=== PATIENT | male | born 1970 | race Caucasian/White ===

== ENCOUNTER 2022-02-24 00:03 | Day surgery (SDC) | payer OTHER, SELFPAY ==
[2022-02-02 13:50] VITALS: BMI 29.8
[2022-02-24 08:22] VITALS: BP 123/85; PULSE 93; RESP 18; TEMP 36.3; O2SAT 99
[2022-02-24] MEDS: LACTATED RINGERS 1,000 ML 150 ML IV CONT (08:35)
--- NOTE | 2022-02-24 08:54 | P.PNAN_ITS ---
Anes - Initial Pre Proc Eval Procedure: Operation Date: 02/24/22 09:15 Proposed Procedures p Screening Colonoscopy - Leonardo Moura MD Date/Time: 02/24/22 08:54 Surgeon: Leonardo Moura MD Pre Op Diagnosis: neoplasm screening, hx of colon polyps Patient Data Age: 51 Gender: M Height: 1.73 m Weight: 89.2 kg Last Vital Signs Temp 97.4 F L 02/24/22 08:22 Pulse 93 02/24/22 08:22 Resp 18 02/24/22 08:22 BP 123/85 02/24/22 08:22 Pulse Ox 99 02/24/22 08:22 O2 Del Method Room Air 02/24/22 08:22 Allergies Allergy/AdvReac Type Severity Reaction Status Date / Time No Known Allergies Allergy Unknown Verified 02/24/22 08:21 Home Medications Medication Instructions Recorded Confirmed Type Adult One Daily Multivitamin 1 tab-cap PO DAILY 02/02/22 02/02/22 History Candido-Iron 325 mg PO DAILY 02/02/22 02/02/22 History Vitamin D3 1,000 units PO DAILY 02/02/22 02/02/22 History ascorbate calcium (vitamin C) 500 mg PO DAILY 02/02/22 02/02/22 History Patient hx anesthesia problems: none Family hx anesthesia problems: none Results Review: All pre-operative results and documents have been reviewed as part of the pre- operative evaluation. [facility] Social History Social History Smoking status: Never smoker Alcohol intake: current Alcohol use details: once a week Substance use: never Substance use type: does not use Living arrangements: alone Spiritual care concerns: No Anes - Eval Final PreProcedure Day of Procedure 02/24/22 08:54 Patient weight: overweight Heart: regular rate and rhythm Lungs: clear to auscultation Airway: Mallampati scale class II Neurological: alert and oriented Last oral intake: >/= 8 hours ASA classification: II Emergent: no Anesthetic plan: proceed Results Review: All pre-operative results and documents have been reviewed as part of the pre- operative evaluation. Informed Consent: The patient's anesthetic plan and its attendant risks and benefits were discussed with the patient/family/POA. Questions were solicited and answers provided to the satisfaction of the patient/family/POA.
--- NOTE | 2022-02-24 09:15 | WPDGICN ---
Assessment and Plan Assessment and plan (1) Encounter for screening colonoscopy: Code(s): Z12.11 - Encounter for screening for malignant neoplasm of colon Status: Acute Assessment and Plan: Patient presents for screening colonoscopy. patient also notices some occasional rectal bleeding that will be assessed at time of endoscopy. High-fiber diet is advised. Further recommendations may be given after endoscopy. GI Consult Note Consult date/time: 02/24/22 09:15 Reason for consult: Screening colonoscopy HPI: Saran Boo is a 51 year old male presents for screening colonoscopy. Patient's current weight appetite and bowel movements are normal. Patient denies abdominal pain. Blah habits are normal. patient has a history of a benign hyperplastic polyp removed from the colon 2014. Patient has noticed intermittent bright red blood per rectum this sometimes will last for a week at a time. He denies any associated pain. He reports that his brother was diagnosed with inflammatory bowel disease and colitis . Patient presents today for screening exam. Review of Systems Review of Systems: Review of systems is noncontributory. [facility] Social History Social History Smoking status: Never smoker Alcohol intake: current Alcohol use details: once a week Substance use: never Substance use type: does not use Living arrangements: alone Spiritual care concerns: No Meds Home Medications and Allergies Home Medications Medication Instructions Recorded Confirmed Type Adult One Daily Multivitamin 1 tab-cap PO DAILY 02/02/22 02/02/22 History Candido-Iron 325 mg PO DAILY 02/02/22 02/02/22 History Vitamin D3 1,000 units PO DAILY 02/02/22 02/02/22 History ascorbate calcium (vitamin C) 500 mg PO DAILY 02/02/22 02/02/22 History Allergies Allergy/AdvReac Type Severity Reaction Status Date / Time No Known Allergies Allergy Unknown Verified 02/24/22 08:21 Vital Signs Vital Signs - 24 hr 02/24/22 08:22 Temperature 97.4 F L Pulse Rate 93 Respiratory Rate 18 Blood Pressure 123/85 Pulse Oximetry 99 Oxygen Delivery Room Air Exam Narrative: Physical exam reveals patient to be alert. Vital signs stable. HEENT exam is unremarkable. Patient is anicteric. Lungs are clear to auscultation and percussion. Heart is without murmur or extra sounds. Abdominal exam bowel sounds are present soft nontender with no hepatosplenomegaly. Digital external rectal exam is normal.
[2022-02-24 09:46] VITALS: BP 109/76; PULSE 96; RESP 19; O2SAT 100
[2022-02-24 09:56] VITALS: BP 115/81; PULSE 91; RESP 19; O2SAT 100
[2022-02-24 10:06] VITALS: BP 113/83; PULSE 82; RESP 19; O2SAT 100
== END 2022-02-24 10:24 | disposition home or self-care (01) ==
PROVIDERS: PCP Family Medicine; Visit Provider Internal Medicine Gastroenterology
PROC: 0DJD8ZZ Inspection of Lower Intestinal Tract, Via Natural or Artificial Opening Endoscopic (ICD-10-PCS; CPT 45378; principal; 2022-02-24 09:15)
DX: Z12.11 Encounter for screening for malignant neoplasm of colon (principal); K64.8 Other hemorrhoids
CPT/HCPCS: 45378; J2001; J2704; J7120

== ENCOUNTER 2022-11-15 07:02 | Day surgery (SDC) | payer OTHER, SELFPAY ==
[2022-11-06 14:01] VITALS: BMI 31.4
--- NOTE | 2022-11-15 07:23 | P.PNAN_ITS ---
Anes - Initial Pre Proc Eval Procedure: Operation Date: 11/15/22 08:45 Proposed Procedures p Rectal Exam Under Anesthesia, Internal Hemorrhoid Rubber Band Ligation - Fer Magaña DO Date/Time: 11/15/22 07:23 Surgeon: Fer Magaña DO Pre Op Diagnosis: Grade 2 Internal Hemorrhoids Patient Data Age: 52 Gender: M Height: 1.7 m Weight: 91 kg Allergies Allergy/AdvReac Type Severity Reaction Status Date / Time No Known Allergies Allergy Unknown Verified 11/06/22 13:51 Patient hx anesthesia problems: none Family hx anesthesia problems: none Results Review: All pre-operative results and documents have been reviewed as part of the pre- operative evaluation. [facility] Surgical History Surgical History H/O colonoscopy Family History Family History Other Diabetes mellitus Social History Social History Smoking status: Never smoker Alcohol intake: current Alcohol use details: once a week Substance use: never Substance use type: does not use Living arrangements: with family Spiritual care concerns: No Anes - Eval Final PreProcedure Day of Procedure 11/15/22 07:23 Patient weight: obese Heart: regular rate and rhythm Lungs: clear to auscultation Airway: Mallampati scale class II Neurological: alert and oriented Last oral intake: >/= 8 hours ASA classification: II Emergent: no Anesthetic plan: proceed Anesthesia type and monitoring: general GIVS and standard monitoring Results Review: All pre-operative results and documents have been reviewed as part of the pre- operative evaluation. Informed Consent: The patient's anesthetic plan and its attendant risks and benefits were discussed with the patient/family/POA. Questions were solicited and answers provided to the satisfaction of the patient/family/POA.
[2022-11-15 07:50] VITALS: BP 129/82; PULSE 80; RESP 16; TEMP 36.4; O2SAT 100; BMI 32.1
[2022-11-15] MEDS: ACETAMINOPHEN 500 MG TABLET 1000 MG PO (07:51)
--- NOTE | 2022-11-15 07:59 | PM.IMHP ---
H&P: HPI History of Present Illness Date/Time: 11/15/22 07:59 Chief Complaint: bleeding internal hemorrhoids Narrative: 52yo man presents for REUA with internal hemorrhoid banding. He denies changes since last seen in office. Review of Systems Review of Systems: All systems reviewed & are unremarkable except as noted in HPI and below Constitutional: Constitutional: Denies chills, Denies fever(s), Denies headache(s) and Denies weight loss Eyes: Eyes: Denies change in vision ENT: Denies dizziness, Denies headache(s), Denies neck mass and Denies throat swelling Cardiovascular: Cardiovascular: Denies chest pain, Denies lightheadedness and Denies dyspnea Respiratory: Respiratory: Denies cough, Denies dyspnea and Denies wheezing Gastrointestinal: Gastrointestinal: Denies abdominal pain, Denies change in bowel habits, Denies nausea and Denies vomiting Genitourinary: Genitourinary: Denies hematuria and Denies dysuria Musculoskeletal: Musculoskeletal: Reports as per HPI Integumentary/Breasts: Skin/Breast: Reports as per HPI Neurologic: Denies dizziness and Denies headache(s) Allergic/Immunologic: Allergic/Immunologic: Denies throat swelling and Denies wheezing PMFSH Surgical History Surgical History H/O colonoscopy Family History Family History Other Diabetes mellitus Social History Social History Smoking status: Never smoker Alcohol intake: current Alcohol use details: once a week Substance use: never Substance use type: does not use Living arrangements: with family Spiritual care concerns: No Meds Home Medications and Allergies Allergies Allergy/AdvReac Type Severity Reaction Status Date / Time No Known Allergies Allergy Unknown Verified 11/06/22 13:51 Exam Const: General: no acute distress and alert Orientation/consciousness: patient oriented x3 HENMT: Head: normocephalic and atraumatic Ears: hearing grossly normal bilaterally Face/Nose/Sinus: Normal nares present Mouth: Yes Normal oral and palatal mucosa present Eyes: Periorbital: periorbital findings normal Sclera: sclerae normal EOM: EOMs intact bilaterally Neck: Neck: normal visual inspection, no lymphadenopathy and trachea midline Chest: Chest palpation & inspection: normal inspection of the chest Resp: Effort & Inspection: normal respiratory effort Auscultation: clear to auscultation bilaterally Cardio: Jugular venous distension: no JVD Rate: regular rate Rhythm: regular rhythm Heart sounds: S1 normal heart sound present and S2 normal heart sound present Peripheral pulses: Peripheral pulses 2+ throughout GI: Inspection: normal to inspection GI Palp: Yes Soft to palpation, No Tenderness to palpation present (GI), No Guarding due to palpation present (GI) and No Rebound tenderness present Percussion: Yes normal to percussion Auscultation: normal bowel sounds : General: Yes no CVA tenderness Back/Spine/Pelvis: Back: no CVA tenderness Neuro: General: patient oriented x3, no focal motor deficits and CN's II-XI intact bilaterally Cognition (Neuro): normal cognition Speech: normal speech Motor exam (neuro): 5/5 motor strength present throughout Extrem: General: capillary refill normal and no clubbing, cyanosis or edema Assessment and Plan Assessment and plan (1) Second degree hemorrhoids: Code(s): K64.1 - Second degree hemorrhoids Status: Acute Assessment and Plan: I have recommended rectal exam under anesthesia with internal hemorrhoid banding. I have discussed the procedure, risks, benefits, and alternatives with the patient. All questions answered. No changes since last seen in office.
--- NOTE | 2022-11-15 08:00 | WPDHPUPDATE1 ---
History and Physical Update Update Date/Time: 11/15/22 08:00 History and Physical has been reviewed, including an updated exam of the patient. There are NO changes in the patient's condition. Risks, benefits, and alternatives have been discussed and questions answered. Patient agrees to proceed with procedure.
[2022-11-15] MEDS: LACTATED RINGERS 1,000 ML 30 ML IV CONT (08:05)
[2022-11-15 09:10] VITALS: BP 104/75; PULSE 79; RESP 16; O2SAT 99
--- NOTE | 2022-11-15 09:11 | W.PM.PROC2 ---
Procedure Note - Detailed Date of Procedure 11/15/22 Pre-op Diagnosis Grade 2 Internal Hemorrhoids Post-op Diagnosis Same Procedure Performed rectal exam under anesthesia with internal hemorrhoid rubber-band ligation x3 Surgeon Fer Magaña, DO Anesthesia MAC Indications this is a 52-year-old man who presents with rectal bleeding. He has had bright red blood dripping into the toilet after bowel movements. He denies any pain or any blood mixed in with stool. Discussions were made with the patient about treatment options and decision was made to proceed with rectal exam under anesthesia with internal hemorrhoid rubber-band ligation. Findings Prolapsing internal hemorrhoids were identified in the right anterior, right posterior, and left lateral locations. Rubber-band ligation was performed in all 3 locations. No other abnormalities were noted. Description of Procedure Procedure as well as risks, benefits, and alternatives were discussed with the patient. Written consent was obtained and placed in chart prior to procedure. Patient was brought back to surgical suite. He was placed in left lateral decubitus position on the stretcher. Time-out was done to confirm patient and procedure. IV sedation was administered by the anesthesia department. Digital rectal exam was initially performed. A Hill-Noyola anoscope was then inserted in the anal rectal canal was carefully inspected. A hemorrhoid grasper was used to grasp the hemorrhoid bundle and perform rubber-band ligation of the internal hemorrhoid in the right anterior, right posterior, and left lateral locations. Minimal bleeding was noted. No other abnormalities were seen. The anoscope was then removed. Patient was awakened from anesthesia and transferred to recovery. Estimated Blood Loss 2 Complications No immediate complications Condition Stable Disposition Same day [facility] Billing Surgery - Charge Forward: Surgery Billing
[2022-11-15 09:20] VITALS: BP 104/79; PULSE 80; RESP 18; O2SAT 99
[2022-11-15 09:35] VITALS: BP 108/80; PULSE 79; RESP 18; O2SAT 100
--- NOTE | 2022-11-15 11:38 | WPDANESPN ---
Anes - Prog Note Post-Op Date/Time: 11/15/22 11:38 Cardiovascular status: normal Respiratory status: normal Airway patency: baseline Mental status: baseline Post-Op hydration status: normal Vital Signs: Last Vital Signs Temp 36.4 C L 11/15/22 07:50 Pulse 79 11/15/22 09:35 Resp 18 11/15/22 09:35 BP 108/80 11/15/22 09:35 Pulse Ox 100 11/15/22 09:35 O2 Del Method Room Air 11/15/22 09:35 Pain Score (VAS): 0 I/O: Intake & Output 11/14/22 11/15/22 11/15/22 23:59 07:59 15:59 Intake Total 600 Balance 600 Post-procedural complaints: none Patient Feedback: Patient satisfied with anesthetic care. Other Findings: Patient vital signs back to baseline. Patient denies nausea and vomiting. Patient's pain under control. Patient OK for discharge.
== END 2022-11-15 09:37 | disposition home or self-care (01) ==
PROVIDERS: PCP Family Medicine; Visit Provider Surgery
PROC: (CPT 46221; principal; 2022-11-15 08:45)
DX: K64.1 Second degree hemorrhoids (principal)
CPT/HCPCS: 46221

== ENCOUNTER 2023-08-20 01:39 | Day surgery (SDC) | payer OTHER, SELFPAY ==
[2023-08-14 09:23] VITALS: BMI 31.9
--- NOTE | 2023-08-14 09:26 | PC.NURSE ---
Report to the Outpatient Waiting Room, entrance under the green pavilion located off [facility], at time 1000 on date 08/20/23. Planned Procedure Time: 1200. Time changes happen often and if your time is changed the preop area will call you the afternoon before. - You and your visitor will be asked to self-screen and do not enter if you have any COVID symptoms. - A mask is optional within the hospital at this time. Patients may have clear liquids (water, carbonated beverages, clear teas, apple juice) until 3 hours prior to surgery with a maximum of 20 ounces. - No food from midnight until time of surgery Take the following medications with a SIP of water the morning of surgery: NONE DO NOT STOP ANY OF YOUR OTHER PRESCRIPTION MEDICATIONS PRIOR TO SURGERY ?EXCEPT THE FOLLOWING Medications to discontinue per physician: N/A Date to take last dose: N/A Please no make-up, nail nepali, hairspray, perfume, deodorant, or body powder the day of surgery. No jewelry (including any body piercings) or valuables the day of surgery, leave them at home. Please take a shower or bath the night before, or the morning of, surgery with an antibacterial soap. Wear comfortable, loose fitting clothing. - Jewelry must be removed prior to entering the operating room. Rings and piercings that are not removed may be cut off. - The hospital will not accept responsibility for valuables. - Please leave all valuables, including medications, at home the day of surgery. If you are going home after surgery, a licensed commercial collections driver must drive you home. - NO public transportation without another adult if you receive anesthesia. - We recommend that an adult stay with you for 24 hours following discharge. - We also recommend that you do not drive, make important decision, drink alcoholic beverages, or take any drugs that were not prescribed by your health care provider for at least 24 hours after your discharge time. Follow any additional instructions given to you from your surgeon. If you or anyone in your household have experienced Covid symptoms in the past week, please notify your surgeon or the nurse liaison at the phone number below for possible testing. Telephone instructions given to PT Meenakshi ISIDRO and asked if any additional questions and then verbalized understanding. Patient advised to call surgeon office or pre surgery nurse liaison [phone] if any additional questions.
[2023-08-20] VITALS (7 sets, daily range): BP systolic 123–155; BP diastolic 80–99; PULSE 80–102; RESP 15–24; TEMP 36.1–36.6; O2SAT 94–97; BMI 31.8
--- NOTE | 2023-08-20 10:54 | P.PNAN_ITS ---
Anes - Initial Pre Proc Eval Procedure: Operation Date: 08/20/23 12:00 Proposed Procedures p Rectal Examination Under Anesthesia, Transanal Hemorrhoid Dearterialization - Fer Magaña DO Date/Time: 08/20/23 10:54 Surgeon: Fer Magaña DO Pre Op Diagnosis: grade 1 internal hemorrhoids Patient Data Age: 53 Gender: M Height: 1.73 m Weight: 95.25 kg Allergies Allergy/AdvReac Type Severity Reaction Status Date / Time No Known Allergies Allergy Unknown Verified 08/14/23 09:22 Home Medications Medication Instructions Recorded Confirmed Type acetaminophen-caffeine 500 mg-65 1 tablet PO Q12H PRN pain #20 tabs 07/25/23 08/14/23 Rx mg tablet (Excedrin Tension Headache) tirzepatide 2.5 mg/0.5 mL 2.5 mg (0.5 mL) subcut WEEKLY 4 08/07/23 08/14/23 Rx subcutaneous pen injector weeks #2 mL (Mounjaro) Patient hx anesthesia problems: none Family hx anesthesia problems: none Results Review: All pre-operative results and documents have been reviewed as part of the pre- operative evaluation. [facility] Past Medical History Medical History (Updated 08/20/23 @ 10:54 by Pasha Desai MD) Obesity Surgical History Surgical History S/P hemorrhoidectomy rectal exam under anesthesia with internal hemorrhoid rubber-band ligation x3 11/15/22 Family History Family History Other Diabetes mellitus Social History Social History Smoking status: Never smoker Alcohol intake: current Alcohol use details: 2/MONTH Substance use: former Substance use type: marijuana Lack of Transportation: No Lack of Food: Never True Current Housing: I Have Housing Concerned About Future Housing: No Difficulty Paying Gas/Electric Bills: No Difficulty Paying for Meds: No Currently Unemployed: No Education: High School Diploma/GED Difficulty w/ Childcare or Family Care: No Living arrangements: alone Occupation/Education: occupation Gender identity (if verbalized by the patient): Male Sexual Orientation (if Verbalized by the Patient): Straight or Heterosexual Spiritual care concerns: No Anes - Eval Final PreProcedure Day of Procedure 08/20/23 10:54 Patient weight: overweight Heart: regular rate and rhythm Lungs: clear to auscultation Airway: Mallampati scale class II Neurological: alert and oriented Last oral intake: >/= 8 hours ASA classification: II Emergent: no Anesthetic plan: proceed Anesthesia type and monitoring: general ETT and standard monitoring Results Review: All pre-operative results and documents have been reviewed as part of the pre-o perative evaluation. Informed Consent: The patient's anesthetic plan and its attendant risks and benefits were discussed with the patient/family/POA. Questions were solicited and answers provided to the satisfaction of the patient/family/POA.
[2023-08-20] MEDS: LACTATED RINGERS 1,000 ML 30 ML IV CONT ×2 (11:03→13:40)
[2023-08-20] MEDS: KETOROLAC 15 MG/ML VIAL (*BKC) IV PUSH (11:04)
[2023-08-20] MEDS: ACETAMINOPHEN 500 MG TABLET 1000 MG PO (11:04)
--- NOTE | 2023-08-20 11:50 | WPDHPUPDATE1 ---
History and Physical Update Update Date/Time: 08/20/23 11:50 History and Physical has been reviewed, including an updated exam of the patient. There are NO changes in the patient's condition. Risks, benefits, and alternatives have been discussed and questions answered. Patient agrees to proceed with procedure.
[2023-08-20] MEDS: ceFAZolin 2 GM/D5W 50 ML 2 GM/50 ML BAG IVPB (12:27)
[2023-08-20] MEDS: BUPivacaine HCL 0.5% PF 30 ML VIAL 10 ML INFILTRATE (13:04)
--- NOTE | 2023-08-20 13:18 | W.PM.PROC2 ---
Procedure Note - Detailed Date of Procedure 08/20/23 Pre-op Diagnosis grade 1 internal hemorrhoids Post-op Diagnosis Same Procedure Performed Multiple hemorrhoid ligation (Transanal hemorrhoid dearterialization procedure) Surgeon Fer Magaña, DO Anesthesia General and Local ( 0.5% bupivacaine with epinephrine) Indications This is a 53-year-old man who presented with recurrent bleeding hemorrhoids. He has a history of internal hemorrhoids that were bleeding in the past. He had undergone hemorrhoid banding procedure under sedation in the past and this did seem to help for several months. Over the past 1-2 months he has noticed some increasing rectal bleeding. He denied any pain or any other bowel symptoms. Discussions were made with the patient about treatment options and decision was made to proceed with transanal hemorrhoid dearterialization procedure. Findings Rectal exam under anesthesia was performed. Prolapsing internal hemorrhoid tissue was identified in the right lateral and left lateral locations. The THD Doppler anoscope was used to identify the pulsatile vessels in the typical locations. Six vessels were identified and ligated with 2-0 Vicryl [id number] sutures. No other abnormalities were noted. No specimens were obtained for pathology. Description of Procedure Procedure as well as risks, benefits, and alternatives were discussed with the patient. Written consent was obtained and placed in chart prior to procedure. Patient was brought back to surgical suite. He was placed supine hospital stretcher. He was then intubated by the Anesthesia Department. He was then repositioned into prone jessica-knife position and his buttocks were taped apart on each side. His perirectal area was prepped and draped in sterile fashion using Betadine prep. Time-out was done to confirm patient and procedure. Digital rectal exam was initially performed. A Hill-Noyola anoscope was then inserted in the anorectal canal was carefully inspected. Prolapsing internal hemorrhoids were identified, but no other significant abnormalities were noted. The THD Doppler anoscope was then inserted. The pulsatile hemorrhoidal vessel was initially identified in the 1 o'clock location. A 2 0 Vicryl [id number] suture was placed at this location and the suture was tied down to ligate the vessel. This was then repeated in the 3, 5, 7, 9, and 11 o'clock positions. All Doppler signals were easily identified in each location. After completing this portion of the procedure, I then examined the anoderm and anal mucosa for any persistent prolapsing tissue. There only appeared to be minimal prolapsing mucosa. One final inspection was made around the anal rectal canal and no other abnormalities were noted. 0.5% bupivacaine with epinephrine was infiltrated locally around the anus. The patient was then awakened from anesthesia, extubated, and transferred to recovery. Estimated Blood Loss 10 Complications No immediate complications Condition Stable Disposition Same day [facility] Billing Surgery - Charge Forward: Surgery Billing
== END 2023-08-20 15:00 | disposition home or self-care (01) ==
PROVIDERS: PCP Family Medicine; Visit Provider Surgery
PROC: (CPT 46948; principal; 2023-08-20 12:00)
DX: K64.0 First degree hemorrhoids (principal); F12.90 Cannabis use, unspecified, uncomplicated; Z79.85 Long-term (current) use of injectable non-insulin antidiabetic drugs
CPT/HCPCS: 46948; A9270; J0330; J0690; J1100; J1885; J2250; J2405; J2704; J3010; J7120

== ENCOUNTER 2023-08-23 02:04 | Emergency (ER) | payer OTHER, SELFPAY ==
[2023-08-23 02:07] VITALS: BP 131/92; PULSE 91; RESP 14; TEMP 37; O2SAT 97
[2023-08-23 03:16] LABS: Hematocrit 47.9 % (42.0-52.0); Hemoglobin 15.6 g/dL (14.0-18.0); Immature Granulocyte Percent A 0.3 % (0-0.5); Lymphocytes Percent Auto 12.3 % (18.3-44.2); Mean Corpuscular HGB Conc 32.6 g/dl (32-36); Mean Corpuscular Hemoglobin 27.6 pg (26-34); Mean Corpuscular Volume 84.8 fl (80-100); Mean Platelet Volume 10.3 fl (7.4-10.4); Neutrophils Percent Auto 81.7 % (45.5-73.1); Platelet Count Result 286 k/mm3 (150-375); Red Blood Count 5.65 M/mm3 (4.6-6.20); Red Cell Distribution Width 14.4 % (11.5-14.5); White Blood Count 12.7 K/mm3 (4.5-10.0)
[2023-08-23 03:17] LABS: Basophils Percent Auto 0.2 % (0.2-1.2); Eosinophils Percent Auto 0.2 % (0-4.4); Immature Granulocyte Absolute 0.04 K/mm3 (0.00-0.031); Lymphocytes Absolute Auto 1.55 K/mm3 (0.9-3.2); Monocytes Absolute Auto 0.7 K/mm3 (0.1-0.6); Monocytes Percent Auto 5.3 % (2.6-8.5); Neutrophils Absolute Auto 10.3 K/mm3 (1.3-6.7)
[2023-08-23 03:37] LABS: Appearance Urine Clear (Clear); Bacteria Urine None Seen /hpf; Bilirubin Urine Negative (Negative); Color Urine Yellow (Yellow); Glucose Urine UA Negative (Negative); Ketones Urine Negative (Negative); Leukocyte Esterase Ur Negative LEU/UL (Negative); Nitrate Urine Negative (Negative); Non Pathogenic Casts 0-2; Protein Urine Negative (Negative); Specific Grav Ur 1.014 (1.001-1.035); Squamous Epithelial Cell Urine None seen /hpf (Few); Urobilinogen Urine 0.2 mg/dL (<2.0); WBC Urine 0-5 /hpf; pH Urine 5.5 (5.0-9.0)
[2023-08-23 03:40] LABS: Add Urine Microscopic? YES
[2023-08-23 03:41] LABS: Alanine Aminotransferase 28 U/L (6-50); Albumin Level 4.6 g/dL (3.5-5.1); Alkaline Phosphatase 76 U/L (38-126); Anion Gap 11 mmol/L (8-16); Aspartate Amino Transferase 27 U/L (17-59); Bilirubin,Total 0.6 mg/dL (0.2-1.3); Blood Urea Nitrogen 19 mg/dL (9-20); Calcium 9.4 mg/dL (8.4-10.2); Carbon Dioxide 27 mmol/L (22-30); Chloride 100 mmol/L (98-107); Estimated CRCL calculation 77 ml/min; Estimated Glomerular Filt Rate > 60; Glucose 119 mg/dL (65-110); Lipase 139 U/L (23-300); Sodium 138 mmol/L (137-145)
[2023-08-23] MEDS: SODIUM CHLORIDE 0.9% IV 1,000 ML 999 ML IV CONT (03:47)
[2023-08-23 04:31] VITALS: BP 142/93; PULSE 78; RESP 16; O2SAT 96
--- NOTE | 2023-08-23 04:42 | ED.ABDPAIN ---
HPI - Abdominal Pain General Chief Complaint: Abdominal Pain Stated Complaint: constipation Time Seen by Provider: 08/23/23 03:12 History of Present Illness HPI narrative: Patient is a 53-year-old male presenting with abdominal pain. Patient had a hemorrhoidectomy earlier this week. States that he was doing well until yesterday when he developed urinary retention. States that he had a sensation that he needed to urinate but was unable to. States that this is never happened before. He also reports constipation since his procedure. He has been taking MiraLx daily. He recently stopped taking the Rowe. He denies nausea or vomiting. No further complaints. Related Data Allergies Allergy/AdvReac Type Severity Reaction Status Date / Time No Known Allergies Allergy Unknown Verified 08/20/23 12:09 Review of Systems Review of Systems: All systems reviewed & are unremarkable except as noted in HPI and below PMFSH Past Medical History Medical History (Updated 08/24/23 @ 09:23 by Gavi Ferris) Obesity Surgical History Surgical History (Updated 08/24/23 @ 08:51 by Lynne Sibley MA) Hx of hemorrhoidectomy Multiple hemorrhoid ligation (Transanal hemorrhoid dearterialization procedure) on 08/20/23 [facility] S/P hemorrhoidectomy rectal exam under anesthesia with internal hemorrhoid rubber-band ligation x3 11/15/22 Family History Family History Other Diabetes mellitus Social History Social History Smoking status: Never smoker Alcohol intake: current Alcohol use details: 2/MONTH Substance use: former Substance use type: marijuana Lack of Transportation: No Lack of Food: Never True Current Housing: I Have Housing Concerned About Future Housing: No Difficulty Paying Gas/Electric Bills: No Difficulty Paying for Meds: No Currently Unemployed: No Education: High School Diploma/GED Difficulty w/ Childcare or Family Care: No Living arrangements: alone Occupation/Education: occupation Gender identity (if verbalized by the patient): Male Sexual Orientation (if Verbalized by the Patient): Straight or Heterosexual Spiritual care concerns: No Exam Narrative: GENERAL: Nontoxic, uncomfortable appearing, pleasant and cooperative HEAD: Normocephalic, atraumatic. EYES: PERRLA and EOMI. ENT: Mucous membranes moist. NECK: Supple. CHEST: No respiratory distress. HEART: Regular rate and rhythm ABDOMEN: Soft, +suprapubic tenderness, no guarding or rebound EXTREMITIES: Normal range of motion. SKIN: Warm NEURO: Alert and oriented x3. PSYCH: Normal mood and affect. Course Vital Signs Vital signs: Vital Signs Temperature 98.6 F 08/23/23 02:07 Pulse Rate 91 08/23/23 02:07 Respiratory Rate 14 08/23/23 02:07 Blood Pressure 131/92 H 08/23/23 02:07 Pulse Oximetry 97 08/23/23 02:07 Temperature 98.6 F 08/23/23 02:07 Pulse Rate 78 08/23/23 04:31 Respiratory Rate 16 08/23/23 04:31 Blood Pressure 142/93 H 08/23/23 04:31 Pulse Oximetry 96 08/23/23 04:31 MDM - Abdominal Pain MDM Narrative Medical decision making narrative: 53-year-old male presenting with urinary retention in the setting of a surgical procedure several days ago. Vitals are stable. Exam remarkable for the above. Bladder scan with greater than 500 cc. De Leon catheter was placed with immediate drainage of approximately 1400 cc of urine. Blood work with mild leukocytosis. Renal function is normal. UA without evidence of infection. After the De Leon catheter was placed, patient reports significant improvement in his pain and discomfort. he feels comfortable going home with De Leon catheter and close Urology follow-up. Advised that he call later today schedule this. Also recommended he follow-up with his surgeon. Appropriate return precautions given. Discharged in stabl
--- NOTE | 2023-08-23 04:48 | PC.NURSE ---
De Leon bag changed to a leg bag prior to discharge. Information regarding leg bag care given to patient and spouse. Patient and spouse verbalize understanding.
--- NOTE | 2023-09-06 10:26 | PC.NURSE ---
LATE ENTRY This note is being entered to document information to the patient's record. The following information was omitted on [08/23/23], by [Dr. Alejandro]. HAKAN for indwelling ayala to be placed.
== END 2023-08-23 05:04 | disposition home or self-care (01) ==
PROVIDERS: Emergency Provider Emergency Medicine; PCP Family Medicine
DX: N99.89 Other postprocedural complications and disorders of genitourinary system (principal); R33.8 Other retention of urine; E66.9 Obesity, unspecified; Z68.33 Body mass index [BMI] 33.0-33.9, adult
CPT/HCPCS: 36415; 51702; 80053; 81001; 83690; 85025; 96360; 99283; J7030